=== PATIENT | female | born 1995 | race Hispanic/Latino ===

== ENCOUNTER 2022-03-27 11:43 | Emergency (ER) | payer OTHER ==
[2022-03-27 12:46] LABS: Urine Blood Trace-intact (Negative); Urine Glucose Negative (Negative); Urine Protein 2+ (Negative); Urine Specific Gravity 1.015 (1.005-1.030)
[2022-03-27 12:54] LABS: Absolute Lymphocytes (CBC) 1.6 K/uL (0.7-4.9); Hematocrit 31.5 % (36.0-45.0); Lymphocytes % 9.3 % (15.3-44.8); MCV 72.8 fL (80-100); MPV 8.6 fL (7.6-11.3); RBC Red Blood Cell Count 4.33 M/uL (3.86-4.86)
[2022-03-27 12:56] LABS: Urine Bacteria <20 /HPF (<20); Urine Mucus 1+ /HPF (None Seen); Urine WBC Clump Occasional /HPF (None Seen)
[2022-03-27 12:57] LABS: Urine Specific Gravity/Preg 1.015 (1.005-1.030)
[2022-03-27] MEDS ORDERED: NA CHLORIDE 0.9% 1,000 ML ONE (13:03)
[2022-03-27] MEDS ORDERED: KETOROLAC 30 MG/ML INJ ONE (13:03)
[2022-03-27 13:12] LABS: Albumin 3.4 g/dL (3.4-5.0); Bilirubin Total 0.5 mg/dL (0.2-1.0); Potassium 3.7 mmol/L (3.5-5.1); Protein, Total 7.1 g/dL (6.4-8.2)
--- NOTE | 2022-03-27 13:25 | RAD REPORT ---
EXAM DESCRIPTION: CT - Abdomen Pelvis W Contrast - 03/27/2022 1:12 pm CLINICAL HISTORY: Abdominal pain/lower abdominal pain COMPARISON: none. TECHNIQUE: Computed axial tomography of the abdomen pelvis was obtained. 100 cc Isovue-300 was admin istered intravenously. Oral contrast was not requested which limits evaluation of bowel and appendix All CT scans are performed using dose optimization technique as appropriate and may include automated exposure control or mA/KV adjustment according to patient size. FINDINGS: The liver, spleen, pancreas, adrenal and kidneys appear unremarkable. There is no evidence of diverticulitis. Normal appendix 3 centimeter structure abuts the left lateral aspect of the uterus. It appears separate from the left ovary. IMPRESSION: 3 centimeter structure abuts the left lateral aspect of the uterus. It appears separate from the left ovary. If the beta HCG is negative then this probably is benign. Follow up ultrasound in 3 months would be recommended for re-evaluation
--- NOTE | 2022-03-27 14:36 | RAD REPORT ---
EXAM DESCRIPTION: US - Transvaginal Study Probe - 03/27/2022 2:21 pm CLINICAL HISTORY: Pelvic pain COMPARISON: CT January 24, 20232021 FINDINGS: The uterus measures 10 x 5 x 6 cm. A fibroid is not seen. The endometrial stripe measures 1.5 centimeters 3 centimeter ill-defined tissue abuts the left lateral aspect of uterus. Left ovary measures 3 x 1.7 x 1.5 centimeters with a normal echotexture. Blood flow is present Right ovary normal in size and echotexture The right and left adnexa unremarkable No significant free fluid is seen. IMPRESSION: Ill-defined tissue abuts the left lateral aspect of the uterus. It is uncertain if this represents an unusual appearing portion of the left ovary. It is of doubtful clinical significance. F [facility] ultrasound in 3 months recommended for re-evaluation
--- NOTE | 2022-03-27 14:58 | ER ---
Nurse's Notes [facility] Name: Rahel Grant Age: 26 yrs Sex: Female : 1995 Arrival Date: 03/27/2022 Time: 11:46 Bed 8 Private MD: Diagnosis: UTI/ Urinary tract infection, site not specified Presentation: 03/27 12:21 Chief complaint: Patient states: Lower abdominal pain that started yesterday, denies ph N/V/D, also states that she had low back pain yesterday, denies back pain now, denies urinary symptoms. Coronavirus screen: Vaccine status: Patient reports receiving the 2nd dose of the covid vaccine. Ebola Screen: No symptoms or risks identified at this time. Initial Sepsis Screen: Does the patient meet any 2 criteria? No. Patient's initial sepsis screen is negative. Does the patient have a suspected source of infection? No. Patient's initial sepsis screen is negative. Risk Assessment: Do you want to hurt yourself or someone else? Patient reports no desire to harm self or others. Onset of symptoms was March 27, 2022. 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 - Social history:: Smoking status: Patient denies any tobacco usage or history of. Screenin:51 [facility] ED Fall Risk Assessment (Adult) History of falling in the last 3 months, ph including since admission No falls in past 3 months (0 pts) Confusion or Disorientation No (0 pts) Intoxicated or Sedated No (0 pts) Impaired Gait No (0 pts) Mobility Assist Device Used No (0 pt) Altered Elimination No (0 pt) Score/Fall Risk Level 0 - 2 = Low Risk Oriented to surroundings, Maintained a safe environment, Hourly rounding (assess needs \T\ fall precautionary measures) done. Abuse screen: Denies threats or abuse. Denies injuries from another. Nutritional screening: No deficits noted. Tuberculosis screening: No symptoms or risk factors identified. Assessment: 12:47 General: Appears in no apparent distress. comfortable, well groomed, Behavior is calm, ph cooperative, appropriate for age, Reports chills for. Pain: Complains of pain in suprapubic area. Neuro: Level of Consciousness is awake, alert, obeys commands, Oriented to person, place, time, situation. Cardiovascular: Capillary refill < 3 seconds in bilateral fingers Patient's skin is warm and dry. Respiratory: Airway is patent Respiratory effort is even, unlabored, Respiratory pattern is regular, symmetrical. GI: Abdomen is non-distended, Reports lower abdominal pain, Patient currently denies diarrhea, nausea, vomiting. : Reports pain in suprapubic area Denies burning with urination. Derm: Skin is intact, is healthy with good turgor, Skin is pink, warm \T\ dry. Musculoskeletal: Circulation, motion, and sensation intact. Range of motion: intact in all extremities. 13:28 Reassessment: Patient appears in no apparent distress at this time. Patient and/or ph family updated on plan of care and expected duration. Pain level reassessed. Patient is alert, oriented x 3, equal unlabored respirations, skin warm/dry/pink. 15:30 Reassessment: Patient appears in no apparent distress at this time. Patient and/or ph family updated on plan of care and expected duration. Pain level reassessed. Patient is alert, oriented x 3, equal unlabored respirations, skin warm/dry/pink. Vital Signs: 12:21 BP 109 / 73; Pulse 87; Resp 18; Temp 98.0; Pulse Ox 98% on R/A; Weight 62.6 kg; Height ph 5 ft. 0 in. (152.40 cm); 13:28 BP 99 / 70; Pulse 92; Resp 18; Pulse Ox 99% on R/A; ph 14:30 BP 98 / 72; Pulse 87; Resp 18; Pulse Ox 99% on R/A; ph 15:30 BP 102 / 78; Pulse 89; Resp 18; Temp 98.2; Pulse Ox 99% ; ph 12:21 Body Mass Index 26.95 (62.60 kg, 152.40 cm) ph ED Course: 11:46 Patient arrived in ED. as 11:48 Jalyn Aviles FNP-C is [facility]. kb 11:48 Destin Crook MD is Attending Physician. kb 12:11 Cee, Tracy, RN is Primary Nurse. ph 12:23 Triage completed. ph 12:30 Arm band placed on Patient placed in an exam room, on a stretcher. ph 12:40 Inserted saline lock: 22 gauge in right antecubital area, using aseptic technique. ph Blood collected. 12:52 Patient has correct armband on for positive identification. Bed in low position. Call ph light in reach. Pulse ox on. NIBP on. 13:14 CT Abd/Pelvis - IV Contrast Only In Process Unspecified. EDMS 14:22 US Transvaginal Study (Probe) In Process Unspecified. EDMS 15:31 No provider procedures requiring assistance completed. IV discontinued, intact, ph bleeding controlled, No redness/swelling at site. Pressure dressing applied. Administered Medications: 13:15 Drug: NS 0.9% 1000 ml Route: IV; Rate: 1 bolus; Site: right antecubital; ph 14:30 Follow up: Response: No adverse reaction; IV Status: Completed infusion; IV Intake: ph 1000ml 13:15 Drug: TORadol - (ketorolac) 15 mg Route: IVP; Site: right antecubital; ph 15:32 Follow up: Response: No adverse reaction; Pain is decreased ph Medication: 12:53 VIS not applicable for this client. ph Intake: 14:30 IV: 1000ml; Total: 1000ml. ph Outcome: 14:58 Discharge ordered by . kb 15:31 Discharged to home ambulatory. ph 15:31 Condition: good 15:31 Discharge instructions given to patient, Instructed on discharge instructions, follow up and referral plans. medication usage, Demonstrated understanding of instructions, follow-up care, medications, Prescriptions given X 1. 15:32 Patient left the ED. ph Signatures: Dispatcher [employer] EDDE Jalyn Aviles, STEVEN HAWLEY-Isidra Cardozo as Tracy Cee, RN RN ph
--- NOTE | 2022-03-27 14:58 | EDPHYS ---
Physician Documentation [facility] Name: Rahel Grant Age: 26 yrs Sex: Female : 1995 Arrival Date: 03/27/2022 Time: 11:46 Bed 8 Private MD: ED Physician Destin Crook HPI: 03/27 15:05 This 26 yrs old Female presents to ER via Ambulatory with complaints of kb Abdominal Pain, Pelvic Pain. 15:05 The patient presents with abdominal pain suprapubic pain. Onset: The symptoms/episode kb began/occurred yesterday. 15:07 The symptoms do not radiate. Associated signs and symptoms: Pertinent positives: pain kb in bladder area when urinating. The symptoms are described as constant. Modifying factors: The symptoms are alleviated by nothing, the symptoms are aggravated by nothing. Severity of pain: At its worst the pain was moderate in the emergency department the pain is unchanged. The patient has not experienced similar symptoms in the past. The patient has not recently seen a physician. 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 - Social history:: Smoking status: Patient denies any tobacco usage or history of. ROS: 14:41 Constitutional: Negative for fever, chills, and weight loss. kb 14:41 Abdomen/GI: Positive for abdominal pain. 14:44 All other systems are negative. kb Exam: 14:50 Constitutional: This is a well developed, well nourished patient who is awake, alert, kb and in no acute distress. Head/Face: Normocephalic, atraumatic. ENT: Moist Mucous membranes Cardiovascular: Regular rate and rhythm with a normal S1 and S2. No gallops, murmurs, or rubs. No pulse deficits. Respiratory: Respirations even and unlabored. No increased work of breathing. Talking in full sentences Skin: Warm, dry with normal turgor. Normal color. MS/ Extremity: Pulses equal, no cyanosis. Neurovascular intact. Full, normal range of motion. Neuro: Awake and alert, GCS 15, oriented to person, place, time, and situation. Moves all extremities. Normal gait. Psych: Awake, alert, with orientation to person, place and time. Behavior, mood, and affect are within normal limits. 14:50 Abdomen/GI: Inspection: abdomen appears normal, Bowel sounds: normal, Palpation: soft, in all quadrants, moderate abdominal tenderness, in the right lower quadrant and left lower quadrant. Vital Signs: 12:21 BP 109 / 73; Pulse 87; Resp 18; Temp 98.0; Pulse Ox 98% on R/A; Weight 62.6 kg; Height ph 5 ft. 0 in. (152.40 cm); 13:28 BP 99 / 70; Pulse 92; Resp 18; Pulse Ox 99% on R/A; ph 14:30 BP 98 / 72; Pulse 87; Resp 18; Pulse Ox 99% on R/A; ph 15:30 BP 102 / 78; Pulse 89; Resp 18; Temp 98.2; Pulse Ox 99% ; ph 12:21 Body Mass Index 26.95 (62.60 kg, 152.40 cm) ph MDM: 12:10 Patient medically screened. kb 12:15 ED course: Patient is a 26-year-old female with a history of frequent UTIs who presents kb for suprapubic pain that is worse with urination that started yesterday. Physical exam positive for tenderness to entire lower abdomen. Will obtain serum labs, urine and CT scan. Differential diagnosis include UTI, cystitis, pyelonephritis, kidney stone, appendicitis, TOA. . 14:44 Data reviewed: vital signs, nurses notes. kb 14:57 Differential diagnosis: appendicitis, non-specific abd pain, Pyelonephritis, Tubal kb Ovarian Abcess, Ureterolithiasis, urinary tract infection. Counseling: I had a detailed discussion with the patient and/or guardian regarding: the historical points, exam findings, and any diagnostic results supporting the discharge/admit diagnosis, lab results, radiology results, the need for outpatient follow up, a family practitioner, an OB/Gyne specialist, to return to the emergency department if symptoms worsen or persist or if there are any questions or concerns that arise at home. 15:09 ED course: Diagnostic results reviewed with patient and patient given printed copy. kb Patient will follow-up with gynecology for further evaluation.. 03/27 12:16 Order name: CBC with Diff; Complete Time: 12:59 kb 03/27 12:16 Order name: CMP; Complete Time: 13:14 kb 03/27 12:16 Order name: Lipase; Complete Time: 13:14 kb 03/27 12:16 Order name: Urine Microscopic Only; Complete Time: 12:59 kb 03/27 12:46 Order name: Urine --Ancillary (enter results); Complete Time: 12:59 bd 03/27 12:46 Order name: Urine Dipstick-Ancillary; Complete Time: 12:50 EDMS 03/27 12:16 Order name: CT Abd/Pelvis - IV Contrast Only; Complete Time: 13:33 kb 03/27 12:16 Order name: IV Saline Lock; Complete Time: 12:47 kb 03/27 12:16 Order name: Labs collected and sent; Complete Time: 12:47 kb 03/27 12:16 Order name: Urine Dipstick-Ancillary (obtain specimen); Complete Time: 12:47 kb 03/27 12:16 Order name: Urine Test (obtain specimen); Complete Time: 12:47 kb 03/27 13:43 Order name: US Transvaginal Study (Probe); Complete Time: 14:37 kb Administered Medications: 13:15 Drug: NS 0.9% 1000 ml Route: IV; Rate: 1 bolus; Site: right antecubital; ph 14:30 Follow up: Response: No adverse reaction; IV Status: Completed infusion; IV Intake: ph 1000ml 13:15 Drug: TORadol - (ketorolac) 15 mg Route: IVP; Site: right antecubital; ph 15:32 Follow up: Response: No adverse reaction; Pain is decreased ph Disposition: 18:05 Co-signature as Attending Physician, Destin Crook MD I agree with the assessment and kdr plan of care. Disposition Summary: 03/27/22 14:58 Discharge Ordered Location: Home kb Condition: Stable kb Diagnosis - UTI/ Urinary tract infection, site not specified kb Followup: kb - With: Emergency Department - When: As needed - Reason: Worsening of condition Followup: kb - With: Private Physician - When: 2 - 3 days - Reason: Recheck today's complaints, Continuance of care, Re-evaluation by your physician Discharge Instructions: - Discharge Summary Sheet kb - Urinary Tract Infection, Adult, [id number] kb Forms: - Medication Reconciliation Form kb - Thank You Letter kb - Antibiotic Education kb - Prescription Opioid Use kb Prescriptions: - Augmentin 875-125 mg Oral Tablet - take 1 tablet by ORAL route every 12 hours for 10 days; 20 tablet; Refills: 0, kb Product Selection Permitted Signatures: Dispatcher [employer] EDMS Jalyn Aviles, MEAT STRINGER-C MARLEEN-Destin Ospina MD MD kdr Hall, Patricia, RN RN ph Corrections: (The following items were deleted from the chart) 15:07 15:05 Onset: The symptoms/episode began/occurred today, kb kb
[2022-03-27 15:37] VITALS: O2SAT 99
[2022-03-27 15:39] VITALS: BP 102/78; TEMP 98.2
== END 2022-03-27 15:32 | disposition home or self-care (01) ==
LOC: ER 11:43
DX: N39.0 Urinary tract infection, site not specified (principal)
CPT/HCPCS: 85025; 36415; 81025; 83690; 80053; 74177; 76830; Q9967; J7030; 81003; 81015